=== PATIENT | male | born 1985 | race African-American/Black ===

== ENCOUNTER 2017-10-17 08:42 | Emergency (ER) | payer OTHER ==
[~2017-10-17] VITALS: Ht 180.3 cm; Wt 100.0 kg
[2017-10-17 08:46] VITALS: BP 131/88
[2017-10-17] MEDS ORDERED: KETOROLAC TROMETHAMINE 60 MG/2 ML VIAL IM ONE (10:30)
== END 2017-10-17 11:29 | disposition home or self-care (01) ==
LOC: EMS 08:43
DX: M54.5 Low back pain (principal); V49.40XA Driver injured in collision with unspecified motor vehicles in traffic accident, initial encounter; Y93.89 Activity, other specified; Y92.89 Other specified places as the place of occurrence of the external cause; Y99.8 Other external cause status
CPT/HCPCS: 96372; 99283; J1885